=== PATIENT | female | born 1960 | race Caucasian/White ===

== ENCOUNTER 2020-01-18 13:29 | Inpatient (IN) | payer MEDICAID ==
[~2020-01-18] VITALS: Ht 160 cm; Wt 79.8 kg
[2020-01-18] MEDS ORDERED: LORAZEPAM 2MG/ML CPJ ONE (13:47)
[2020-01-18] MEDS ORDERED: SODIUM CHLORIDE 0.9% 1,000 ML IV ONE (14:01)
[2020-01-18 14:14] LABS: BASOPHILS % 0.6 % (0.0-2.0); EOSINOPHILS % 5.7 % (0.0-5.0); HEMATOCRIT. 41.4 % (36.0-48.0); HEMOGLOBIN. 13.8 g/dL (12.0-16.0); LYMPHOCYTES % 46.6 % (20.0-50.0); MEAN CORPUSCULAR HEMOGLOBIN 33.1 pg (28.0-32.0); MEAN PLATELET VOLUME 8.2 fl (7.4-10.4); MONOCYTES % 6.7 % (2.0-8.0); NEUTROPHILS % 40.4 % (40.0-76.0); PLATELET 369 x1000/uL (130-400); RED BLOOD CELL COUNT 4.18 mill/uL (4.2-5.4); RED CELL DISTRIBUTION WIDTH 14.2 % (11.6-14.6)
[2020-01-18] MEDS ORDERED: LEVETIRACETAM 500MG PREMIX 100 ML IV ONE (14:15)
[2020-01-18 14:22] LABS: CHLORIDE 106 mEq/L (98-107); CLARITY URINE CLEAR (CLEAR); COLOR URINE YELLOW (YELLOW); KETONES URINE NEGATIVE (NEGATIVE); LEUKOCYTE ESTERASE URINE 1+ (NEGATIVE); NITRITE URINE NEGATIVE (NEGATIVE); OCCULT BLOOD URINE 1+ (NEGATIVE); PH URINE 5.5 (4.5-8.0); PROTEIN URINE 1+ (NEGATIVE); SPECIFIC GRAVITY URINE 1.023 (1.005-1.030)
[2020-01-18 14:23] LABS: INR 0.9; PARTIAL THROMBOPLASTIN TIME 24.4 sec (23.4-31.0); PROTHROMBIN TIME 10.3 sec (9.6-11.0)
[2020-01-18 14:26] LABS: ETHANOL BLOOD < 10 mg/dL
[2020-01-18] MEDS ORDERED: LORAZEPAM 2MG/ML CPJ IV ONE (14:30)
[2020-01-18 14:41] LABS: CARBAMAZEPINE < 0.5 ug/mL (4-12); PHENOBARBITAL < 2.1 ug/mL (15.0-40.0); VALPROIC ACID < 3.0 ug/mL (50-100)
[2020-01-18 14:43] LABS: *AMPHETAMINES SCREEN URINE PRESUMTIVE POSITIVE (NEGATIVE); *BARBITURATES SCREEN URINE NEGATIVE (NEGATIVE); *BENZODIAZEPINES SCREEN URINE NEGATIVE (NEGATIVE); *COCAINE SCREEN URINE NEGATIVE (NEGATIVE)
[2020-01-18 14:44] LABS: CANNABINOID URINE SCREEN NEGATIVE (NEGATIVE); METHADONE URINE SCREEN NEGATIVE (NEGATIVE); OPIATES URINE SCREEN NEGATIVE (NEGATIVE); PHENCYCLIDINE URINE SCREEN NEGATIVE (NEGATIVE)
[2020-01-18] MEDS ORDERED: CEFTRIAXONE 1 G PREMIX 50 ML IV ONE (17:00)
[2020-01-18 18:09] VITALS: BP 134/78
[2020-01-18] MEDS ORDERED: SODIUM CHLORIDE 0.9% 1,000 ML IV SCH (19:28)
[2020-01-18] MEDS ORDERED: ACETAMINOPHEN 650MG/20.3ML UDC GT PRN ×2 (19:30)
[2020-01-18] MEDS ORDERED: MAGNESIUM/ALUMINUM HYDROXIDE/SIMETHICONE 30ML UDC PO PRN (19:30)
[2020-01-18] MEDS ORDERED: ACETAMINOPHEN 650MG SUPP PR PRN (19:30)
[2020-01-18] MEDS ORDERED: CLONIDINE 0.1MG TABLET PO PRN (19:30)
[2020-01-18] MEDS ORDERED: LORAZEPAM 2MG/ML CPJ IV PRN (19:30)
[2020-01-18] MEDS ORDERED: ACETAMINOPHEN 325MG TABLET PO PRN (19:30)
[2020-01-18] MEDS ORDERED: NA PHOS,M-B/NA PHOS,DI-BA ENEMA 118ML PR PRN (19:30)
[2020-01-18] MEDS ORDERED: DIPHENHYDRAMINE 50MG/ML VIAL IV PRN (19:30)
[2020-01-18 20:00] VITALS: BP 125/68
[2020-01-18] MEDS: AMLODIPINE 10MG TABLET PO SCH (21:21)
[2020-01-18] MEDS: LEVETIRACETAM 500MG TABLET PO SCH (21:21)
[2020-01-18] MEDS: ACETAMINOPHEN 325MG TABLET PO PRN (21:22)
[2020-01-19] VITALS: BP 100/50
[2020-01-19 07:34] LABS: BASOPHILS % 0.5 % (0.0-2.0); EOSINOPHILS % 4.7 % (0.0-5.0); HEMATOCRIT. 37.1 % (36.0-48.0); HEMOGLOBIN. 12.6 g/dL (12.0-16.0); MEAN CORPUSCULAR VOLUME 96.7 fL (81.0-99.0); MEAN PLATELET VOLUME 8.3 fl (7.4-10.4); MONOCYTES % 5.9 % (2.0-8.0); NEUTROPHILS % 58.9 % (40.0-76.0); PLATELET 312 x1000/uL (130-400); RED BLOOD CELL COUNT 3.83 mill/uL (4.2-5.4); RED CELL DISTRIBUTION WIDTH 14.3 % (11.6-14.6)
[2020-01-19 07:40] LABS: CHLORIDE 111 mEq/L (98-107)
[2020-01-19 07:52] LABS: LDL CHOLESTEROL 157 mg/dL (5-100)
[2020-01-19 07:54] LABS: HDL CHOLESTEROL 46 mg/dL (40-59)
[2020-01-19 08:00] VITALS: BP 101/51
[2020-01-19] MEDS: ACETAMINOPHEN 325MG TABLET PO PRN (08:15)
[2020-01-19] MEDS: LEVETIRACETAM 500MG TABLET PO SCH (08:15)
[2020-01-19] MEDS: AMLODIPINE 10MG TABLET PO SCH (08:17)
[2020-01-19] MEDS ORDERED: KEPP500 MT (11:04)
[2020-01-19 12:00] VITALS: BP 103/66
[2020-01-19 12:58] VITALS: BP 103/66
== END 2020-01-19 14:40 | disposition home or self-care (01) | DRG 53 ==
LOC: ER 13:47 → MICUSO 17:31 → 6WST 18:01
PROVIDERS: ADMIT Family Medicine; ATTEND Family Medicine
DX: G40.89 Other seizures (principal); E78.00 Pure hypercholesterolemia, unspecified; E78.5 Hyperlipidemia, unspecified; F17.200 Nicotine dependence, unspecified, uncomplicated; F19.90 Other psychoactive substance use, unspecified, uncomplicated; I10 Essential (primary) hypertension; Z79.899 Other long term (current) drug therapy; N39.0 Urinary tract infection, site not specified
CPT/HCPCS: 36415; 71045; 80053; 80061; 80156; 80165; 80184; 80185; 80305; 80320; 81003; 83036; 83880; 84484; 85025; 93005; 99285; J0696; J1953; J2060; J7030; G0480

== ENCOUNTER 2021-05-10 11:04 | Inpatient (IN) | payer MEDICAID, OTHER ==
[~2021-05-10] VITALS: Ht 160 cm; Wt 76.7 kg
[~2021-05-10 11:04] MED LIST: KEPP500 MT
[2021-05-10] MEDS ORDERED: LEVETIRACETAM 1000MG PREMIX 100 ML IV ONE (11:15)
[2021-05-10 11:45] LABS: BASOPHILS % 0.8 % (0.0-2.0); EOSINOPHILS % 4.7 % (0.0-5.0); HEMATOCRIT. 36.5 % (36.0-48.0); HEMOGLOBIN. 12.7 g/dL (12.0-16.0); LYMPHOCYTES % 20.7 % (20.0-50.0); MEAN CORPUSCULAR HEMOGLOBIN 31.3 pg (28.0-32.0); MEAN CORPUSCULAR VOLUME 89.7 fL (81.0-99.0); MEAN PLATELET VOLUME 7.8 fl (7.4-10.4); MONOCYTES % 4.1 % (2.0-8.0); NEUTROPHILS % 69.7 % (40.0-76.0); PLATELET 351 x1000/uL (130-400); RED BLOOD CELL COUNT 4.07 mill/uL (4.2-5.4); RED CELL DISTRIBUTION WIDTH 14.3 % (11.6-14.6)
[2021-05-10 11:46] LABS: CHLORIDE 107 mEq/L (98-107)
[2021-05-10 11:50] LABS: ETHANOL BLOOD < 10 mg/dL
[2021-05-10 12:44] LABS: CLARITY URINE CLEAR (CLEAR); COLOR URINE YELLOW (YELLOW); KETONES URINE NEGATIVE (NEGATIVE); LEUKOCYTE ESTERASE URINE NEGATIVE (NEGATIVE); NITRITE URINE NEGATIVE (NEGATIVE); OCCULT BLOOD URINE NEGATIVE (NEGATIVE); PH URINE 5.5 (4.5-8.0); PROTEIN URINE NEGATIVE (NEGATIVE); SPECIFIC GRAVITY URINE 1.022 (1.005-1.030)
[2021-05-10 13:23] LABS: *BARBITURATES SCREEN URINE NEGATIVE (NEGATIVE); *COCAINE SCREEN URINE NEGATIVE (NEGATIVE); METHADONE URINE SCREEN NEGATIVE (NEGATIVE); OPIATES URINE SCREEN NEGATIVE (NEGATIVE); PHENCYCLIDINE URINE SCREEN NEGATIVE (NEGATIVE)
[2021-05-10 13:24] LABS: *AMPHETAMINES SCREEN URINE NEGATIVE (NEGATIVE); *BENZODIAZEPINES SCREEN URINE PRESUMTIVE POSITIVE (NEGATIVE); CANNABINOID URINE SCREEN NEGATIVE (NEGATIVE)
[2021-05-10] MEDS ORDERED: ACETAMINOPHEN 325MG TABLET PO PRN (13:45)
[2021-05-10] MEDS ORDERED: LORAZEPAM 2MG/ML CPJ IV PRN (13:45)
[2021-05-10] MEDS ORDERED: MAGNESIUM/ALUMINUM HYDROXIDE/SIMETHICONE 30ML UDC PO PRN (13:45)
[2021-05-10] MEDS ORDERED: HYDROCODONE/ACETAMINOPHEN 5/325MG TABLET PO PRN (13:45)
[2021-05-10] MEDS ORDERED: CLONIDINE 0.1MG TABLET PO PRN (13:45)
[2021-05-10] MEDS ORDERED: ONDANSETRON HCL 4MG/2ML INJ IV PRN (13:45)
[2021-05-10] MEDS ORDERED: ENOXAPARIN 40MG/0.4ML SYR SUBCUT SCH (15:00)
[2021-05-10] MEDS: SODIUM CHLORIDE 0.45% 1,000 ML IV SCH (15:59)
[2021-05-11 05:12] LABS: BASOPHILS % 0.8 % (0.0-2.0); EOSINOPHILS % 5.4 % (0.0-5.0); HEMATOCRIT. 36.6 % (36.0-48.0); HEMOGLOBIN. 12.3 g/dL (12.0-16.0); LYMPHOCYTES % 26.5 % (20.0-50.0); MEAN CORPUSCULAR HEMOGLOBIN 30.7 pg (28.0-32.0); MEAN CORPUSCULAR VOLUME 90.9 fL (81.0-99.0); MEAN PLATELET VOLUME 8.1 fl (7.4-10.4); MONOCYTES % 7.4 % (2.0-8.0); NEUTROPHILS % 59.9 % (40.0-76.0); PLATELET 358 x1000/uL (130-400); RED BLOOD CELL COUNT 4.03 mill/uL (4.2-5.4)
[2021-05-11 05:20] LABS: CHLORIDE 107 mEq/L (98-107)
[2021-05-11] MEDS: SODIUM CHLORIDE 0.45% 1,000 ML IV SCH (06:49)
[2021-05-11 08:05] VITALS: BP 95/42
[2021-05-11] MEDS ORDERED: SERTRALINE HCL 25MG TABLET PO SCH (09:15)
[2021-05-11 10:56] VITALS: BP 95/42
[2021-05-11] MEDS ORDERED: LEVETIRACETAM 500MG TABLET PO SCH (21:00)
[2021-05-11] MEDS ORDERED: ATORVASTATIN CALCIUM 20MG TABLET PO SCH (21:00)
[2021-05-11] MEDS ORDERED: LEVETIRACETAM 500MG/5ML CUP PO SCH (21:00)
== END 2021-05-11 12:40 | disposition home or self-care (01) | DRG 53 ==
LOC: ER 11:26 → MICUSO 13:23 → 8WST 05-11 07:35
PROVIDERS: ADMIT Hospitalist; ATTEND Hospitalist
DX: G40.909 Epilepsy, unspecified, not intractable, without status epilepticus (principal); E78.5 Hyperlipidemia, unspecified; I10 Essential (primary) hypertension; M19.90 Unspecified osteoarthritis, unspecified site; F19.10 Other psychoactive substance abuse, uncomplicated; F32.9 Major depressive disorder, single episode, unspecified; Z79.899 Other long term (current) drug therapy
CPT/HCPCS: 36415; 71045; 80053; 80305; 80320; 81003; 85025; 93005; 93970; 99285; J1650; J1953; G0480

== ENCOUNTER 2021-06-16 14:18 | Emergency (ER) | payer MEDICAID, OTHER ==
[~2021-06-16] VITALS: Ht 167.6 cm; Wt 68.0 kg
[2021-06-16] MEDS ORDERED: LEVETIRACETAM 1000MG PREMIX 100 ML IV ONE (15:00)
[2021-06-16 15:21] LABS: EOSINOPHILS % 3.7 % (0.0-5.0); HEMOGLOBIN. 12.3 g/dL (12.0-16.0); LYMPHOCYTES % 17.3 % (20.0-50.0); MEAN CORPUSCULAR VOLUME 92.6 fL (81.0-99.0); MONOCYTES % 2.7 % (2.0-8.0); NEUTROPHILS % 75.3 % (40.0-76.0); PLATELET 415 x1000/uL (130-400); RED CELL DISTRIBUTION WIDTH 14.1 % (11.6-14.6)
[2021-06-16 15:25] LABS: CHLORIDE 106 mEq/L (98-107)
[2021-06-16 15:30] LABS: ETHANOL BLOOD < 10 mg/dL
[2021-06-16] MEDS ORDERED: LORAZEPAM 2MG/ML CPJ IV ONE (17:45)
[2021-06-16] MEDS ORDERED: KEPP500 MT (17:52)
[2021-06-16 22:39] LABS: CLARITY URINE CLEAR (CLEAR); COLOR URINE YELLOW (YELLOW); KETONES URINE NEGATIVE (NEGATIVE); LEUKOCYTE ESTERASE URINE NEGATIVE (NEGATIVE); NITRITE URINE NEGATIVE (NEGATIVE); OCCULT BLOOD URINE 1+ (NEGATIVE); PROTEIN URINE TRACE (NEGATIVE); SPECIFIC GRAVITY URINE 1.018 (1.005-1.030); UROBILINOGEN URINE 0.2 E.U./dL (0.2-1.0)
[2021-06-16 22:48] LABS: *AMPHETAMINES SCREEN URINE PRESUMTIVE POSITIVE (NEGATIVE); *BARBITURATES SCREEN URINE NEGATIVE (NEGATIVE); *BENZODIAZEPINES SCREEN URINE PRESUMTIVE POSITIVE (NEGATIVE); *COCAINE SCREEN URINE NEGATIVE (NEGATIVE); METHADONE URINE SCREEN NEGATIVE (NEGATIVE)
[2021-06-16 22:49] LABS: CANNABINOID URINE SCREEN NEGATIVE (NEGATIVE); OPIATES URINE SCREEN NEGATIVE (NEGATIVE); PHENCYCLIDINE URINE SCREEN NEGATIVE (NEGATIVE)
[2021-06-16 23:40] VITALS: BP 138/78
== END 2021-06-16 23:40 | disposition home or self-care (01) ==
LOC: ER 14:18
DX: G40.909 Epilepsy, unspecified, not intractable, without status epilepticus (principal); I10 Essential (primary) hypertension; Z86.73 Personal history of transient ischemic attack (TIA), and cerebral infarction without residual deficits
CPT/HCPCS: 36415; 70450; 80053; 80305; 80320; 81003; 85025; 93005; 96365; 96366; 96375; 99285; J1953; J2060; G0480

== ENCOUNTER 2022-04-02 20:17 | Inpatient (IN) | payer MEDICAID, OTHER ==
[~2022-04-02] VITALS: Ht 165.1 cm; Wt 83.3 kg
[2022-04-02] MEDS ORDERED: MIDAZOLAM HCL 2 MG/2 ML VIAL IM ONE (21:30)
[2022-04-02] MEDS ORDERED: SODIUM CHLORIDE 0.9% 1,000 ML IV ONE (21:30)
[2022-04-02] MEDS ORDERED: MIDAZOLAM HCL 2 MG/2 ML VIAL IV ONE ×2 (21:30→22:00)
[2022-04-02] MEDS ORDERED: LEVETIRACETAM 500MG PREMIX 100 ML IV ONE (21:30)
[2022-04-02] MEDS ORDERED: SODIUM CHLORIDE 0.9% 1000ML BAG (SEPSIS BOLUS) IV ONE (22:00)
[2022-04-02] MEDS ORDERED: AZITHROMYCIN 500MG/250ML 250 ML IV ONE (22:00)
[2022-04-02] MEDS ORDERED: CEFTRIAXONE 1 G PREMIX 50 ML IV ONE (22:00)
[2022-04-02 22:14] LABS: BASOPHILS % 0.9 % (0.0-2.0); EOSINOPHILS % 4.3 % (0.0-5.0); HEMATOCRIT. 37.1 % (36.0-48.0); HEMOGLOBIN. 12.3 g/dL (12.0-16.0); LYMPHOCYTES % 34.2 % (20.0-50.0); MEAN CORPUSCULAR HEMOGLOBIN 30.7 pg (28.0-32.0); MEAN CORPUSCULAR VOLUME 92.6 fL (81.0-99.0); MEAN PLATELET VOLUME 8.4 fl (7.4-10.4); MONOCYTES % 4.3 % (2.0-8.0); NEUTROPHILS % 56.3 % (40.0-76.0); PLATELET 360 x1000/uL (130-400)
[2022-04-02 22:22] LABS: CHLORIDE 106 mEq/L (98-107)
[2022-04-02 22:33] LABS: ETHANOL BLOOD < 10 mg/dL; VALPROIC ACID <3.0 ug/mL ug/mL (50-100)
[2022-04-02 22:43] LABS: CARBAMAZEPINE < 0.5 ug/mL (4-12); PHENOBARBITAL < 2.1 ug/mL (15.0-40.0)
[2022-04-02] MEDS ORDERED: LACTULOSE 20G/30ML UDC PO ONE (23:00)
[2022-04-02 23:26] LABS: BG BASE EXCESS -3.9 mmol/L (-2.0-2.0); BG CARBOXYHEMOGLOBIN 0.5 % (0.5-1.5); BG DEOXYHEMOGLOBIN 2.3 % (0.0-5.0); BG FRACTION INSPIRED OXYGEN 100; BG METHEMOGLOBIN 0.2 % (0.0-1.5); BG OXYGEN SATURATION 97.7 % (92.0-98.5); BG PCO2 64.3 mmHg (35.0-45.0); BG PH 7.208 (7.350-7.450); BG PO2 122.6 mmHg (75.0-100.0); BG SAMPLE SITE RIGHT RADIAL; BG TOTAL HEMOGLOBIN 12.6 g/dL (12.0-18.0); BG VENT MODE MASK - NRB
[2022-04-02] MEDS ORDERED: PROPOFOL 10MG/ML 100ML 100 ML IV STA (23:38)
[2022-04-03] VITALS (49 sets, daily range): BP systolic 112–154; BP diastolic 69–124
[2022-04-03 00:14] LABS: CLARITY URINE CLEAR (CLEAR); COLOR URINE YELLOW (YELLOW); KETONES URINE NEGATIVE (NEGATIVE); LEUKOCYTE ESTERASE URINE NEGATIVE (NEGATIVE); NITRITE URINE NEGATIVE (NEGATIVE); OCCULT BLOOD URINE 1+ (NEGATIVE); PROTEIN URINE NEGATIVE (NEGATIVE); SPECIFIC GRAVITY URINE 1.014 (1.005-1.030); UROBILINOGEN URINE 0.2 E.U./dL (0.2-1.0)
[2022-04-03 00:31] LABS: *AMPHETAMINES SCREEN URINE NEGATIVE (NEGATIVE); *BARBITURATES SCREEN URINE NEGATIVE (NEGATIVE); *BENZODIAZEPINES SCREEN URINE PRESUMTIVE POSITIVE (NEGATIVE); *COCAINE SCREEN URINE NEGATIVE (NEGATIVE); CANNABINOID URINE SCREEN NEGATIVE (NEGATIVE); METHADONE URINE SCREEN NEGATIVE (NEGATIVE); OPIATES URINE SCREEN NEGATIVE (NEGATIVE); PHENCYCLIDINE URINE SCREEN NEGATIVE (NEGATIVE)
[2022-04-03] MEDS ORDERED: PROPOFOL 10MG/ML 100ML 100 ML IV STA (00:35)
[2022-04-03] MEDS ORDERED: MIDAZOLAM HCL 2 MG/2 ML VIAL IV ONE (00:45)
[2022-04-03] MEDS ORDERED: MIDAZOLAM 100MG/100ML PMX 100 ML IV NR (00:45)
[2022-04-03] MEDS ORDERED: MIDAZOLAM HCL 100 MG in DEXT 5% WATER 80 ML IV ONE (00:45)
[2022-04-03 01:06] LABS: BG CARBOXYHEMOGLOBIN 0.3 % (0.5-1.5); BG FRACTION INSPIRED OXYGEN 100; BG METHEMOGLOBIN 0.4 % (0.0-1.5); BG OXYHEMOGLOBIN 98.3 % (94.0-97.0); BG PCO2 46.4 mmHg (35.0-45.0); BG PH 7.349 (7.350-7.450); BG PO2 222.1 mmHg (75.0-100.0); BG SAMPLE SITE RIGHT BRACHIAL; BG TOTAL HEMOGLOBIN 13.1 g/dL (12.0-18.0); BG VENT MODE VENT - AC
[2022-04-03] MEDS ORDERED: PROPOFOL 10MG/ML 100ML 100 ML IV NR (03:30)
[2022-04-03] MEDS: PROPOFOL 10MG/ML 100ML 100 ML IV PRN ×4 (08:35→21:01)
[2022-04-03 09:25] LABS: BASOPHILS % 0.2 % (0.0-2.0); EOSINOPHILS % 1.1 % (0.0-5.0); HEMATOCRIT. 34.6 % (36.0-48.0); HEMOGLOBIN. 11.6 g/dL (12.0-16.0); LYMPHOCYTES % 15.2 % (20.0-50.0); MEAN CORPUSCULAR HEMOGLOBIN 30.4 pg (28.0-32.0); MEAN PLATELET VOLUME 7.7 fl (7.4-10.4); MONOCYTES % 5.8 % (2.0-8.0); NEUTROPHILS % 77.7 % (40.0-76.0); PLATELET 320 x1000/uL (130-400); RED CELL DISTRIBUTION WIDTH 14.6 % (11.6-14.6)
[2022-04-03 09:31] LABS: CHLORIDE 107 mEq/L (98-107)
[2022-04-03] MEDS: LEVETIRACETAM 500MG PREMIX 100 ML IV SCH ×2 (11:15→20:07)
[2022-04-03] MEDS ORDERED: CEFTRIAXONE 1 G PREMIX 50 ML IV SCH (11:45)
[2022-04-03] MEDS ORDERED: POTASSIUM CHLORIDE INJ 40 MEQ in DEXT 5% WATER 250 ML IV ONE (11:45)
[2022-04-03 12:17] LABS: BG BASE EXCESS 2.9 mmol/L (-2.0-2.0); BG CARBOXYHEMOGLOBIN 0.3 % (0.5-1.5); BG DEOXYHEMOGLOBIN 2.5 % (0.0-5.0); BG FRACTION INSPIRED OXYGEN 40; BG HCO3 ACT 26.7 mmol/L (22.0-26.0); BG OXYGEN SATURATION 97.5 % (92.0-98.5); BG OXYHEMOGLOBIN 97.2 % (94.0-97.0); BG PH 7.464 (7.350-7.450); BG PO2 99.2 mmHg (75.0-100.0); BG TOTAL HEMOGLOBIN 12.5 g/dL (12.0-18.0); BG VENT MODE VENT - AC
[2022-04-03] MEDS: PANTOPRAZOLE SODIUM 40 MG/VIAL IV SCH (12:31)
[2022-04-03] MEDS: ENOXAPARIN 40MG/0.4ML SYR SUBCUT SCH (12:32)
[2022-04-03] MEDS: KCL 20MEQ/100ML X 2 FOR TOTAL KCL 40MEQ/200ML IV SCH ×2 (12:32→15:36)
[2022-04-03] MEDS ORDERED: OMEP20TA15 MT (12:48)
[2022-04-03] MEDS ORDERED: ATOR20TA PO (12:48)
[2022-04-03] MEDS ORDERED: SERT100T PO (12:48)
[2022-04-03] MEDS ORDERED: ASPI-1497 MT (12:48)
[2022-04-03] MEDS ORDERED: GABA-290 PO (12:48)
[2022-04-03] MEDS: ALBUTEROL (0.083%) 2.5MG/3ML NEB HHN SCH (20:19)
[2022-04-03] MEDS: AZITHROMYCIN 500 MG in DEXT 5% WATER 250 ML IV SCH (21:00)
[2022-04-03] MEDS: MIDAZOLAM HCL 100 MG in SODIUM CHLORIDE 0.9% 80 ML IV PRN (21:00)
[2022-04-03] MEDS: CEFTRIAXONE 1,000 MG in DEXTROSE 5% WATER 50 ML IV SCH (21:00)
[2022-04-04] VITALS (48 sets, daily range): BP systolic 98–156; BP diastolic 57–95
[2022-04-04] MEDS: PROPOFOL 10MG/ML 100ML 100 ML IV PRN ×6 (00:55→21:38)
[2022-04-04] MEDS: ALBUTEROL (0.083%) 2.5MG/3ML NEB HHN SCH ×4 (02:25→20:20)
[2022-04-04 05:59] LABS: BASOPHILS % 0.4 % (0.0-2.0); EOSINOPHILS % 2.7 % (0.0-5.0); HEMATOCRIT. 37.5 % (36.0-48.0); HEMOGLOBIN. 12.6 g/dL (12.0-16.0); LYMPHOCYTES % 21.7 % (20.0-50.0); MEAN CORPUSCULAR HEMOGLOBIN 30.8 pg (28.0-32.0); MEAN CORPUSCULAR VOLUME 91.7 fL (81.0-99.0); MEAN PLATELET VOLUME 7.8 fl (7.4-10.4); MONOCYTES % 6.6 % (2.0-8.0); NEUTROPHILS % 68.6 % (40.0-76.0); PLATELET 326 x1000/uL (130-400); RED BLOOD CELL COUNT 4.09 mill/uL (4.2-5.4); RED CELL DISTRIBUTION WIDTH 14.7 % (11.6-14.6)
[2022-04-04 06:10] LABS: CHLORIDE 106 mEq/L (98-107)
[2022-04-04 08:37] LABS: BG BASE EXCESS 3.2 mmol/L (-2.0-2.0); BG CARBOXYHEMOGLOBIN 0.3 % (0.5-1.5); BG DEOXYHEMOGLOBIN 2.5 % (0.0-5.0); BG FRACTION INSPIRED OXYGEN 40; BG HCO3 ACT 26.9 mmol/L (22.0-26.0); BG METHEMOGLOBIN 0.2 % (0.0-1.5); BG OXYGEN SATURATION 97.5 % (92.0-98.5); BG PH 7.468 (7.350-7.450); BG PO2 96.5 mmHg (75.0-100.0); BG SAMPLE SITE RIGHT RADIAL; BG TOTAL HEMOGLOBIN 12.7 g/dL (12.0-18.0); BG VENT MODE VENT - AC
[2022-04-04] MEDS: LEVETIRACETAM 500MG PREMIX 100 ML IV SCH ×2 (08:51→21:14)
[2022-04-04] MEDS: PANTOPRAZOLE SODIUM 40 MG/VIAL IV SCH (08:51)
[2022-04-04] MEDS: ENOXAPARIN 40MG/0.4ML SYR SUBCUT SCH (08:51)
[2022-04-04] MEDS ORDERED: MIDAZOLAM 100MG/100ML PREMIX IV PRN (09:00)
[2022-04-04] MEDS ORDERED: POTASSIUM CHLORIDE INJ 40 MEQ in DEXT 5% WATER 250 ML IV ONE (09:15)
[2022-04-04] MEDS: KCL 20MEQ/100ML X 2 FOR TOTAL KCL 40MEQ/200ML IV SCH ×2 (10:07→11:59)
[2022-04-04] MEDS: MIDAZOLAM HCL 100 MG in SODIUM CHLORIDE 0.9% 80 ML IV PRN (10:46)
[2022-04-04] MEDS ORDERED: IPRATROPIUM/ALBUTEROL 0.5-3(2.5)MG/3ML NEB HHN PRN (14:30)
[2022-04-04] MEDS: FENTANYL 2500MCG/250ML PMX 250 ML IV PRN (15:42)
[2022-04-04] MEDS: QUETIAPINE FUMARATE 50MG TABLET PO SCH (21:00)
[2022-04-04] MEDS: CEFTRIAXONE 1,000 MG in DEXTROSE 5% WATER 50 ML IV SCH (21:23)
[2022-04-04] MEDS: AZITHROMYCIN 500 MG in DEXT 5% WATER 250 ML IV SCH (21:24)
[2022-04-05] VITALS (41 sets, daily range): BP systolic 89–138; BP diastolic 52–79
[2022-04-05] MEDS: ALBUTEROL (0.083%) 2.5MG/3ML NEB HHN SCH ×4 (01:48→20:47)
[2022-04-05] MEDS: PROPOFOL 10MG/ML 100ML 100 ML IV PRN ×5 (02:30→17:19)
[2022-04-05 06:01] LABS: BASOPHILS % 0.5 % (0.0-2.0); EOSINOPHILS % 4.7 % (0.0-5.0); HEMATOCRIT. 37.5 % (36.0-48.0); HEMOGLOBIN. 12.5 g/dL (12.0-16.0); LYMPHOCYTES % 15.5 % (20.0-50.0); MEAN CORPUSCULAR HEMOGLOBIN 30.8 pg (28.0-32.0); MEAN CORPUSCULAR VOLUME 92.4 fL (81.0-99.0); MEAN PLATELET VOLUME 8.3 fl (7.4-10.4); MONOCYTES % 6.9 % (2.0-8.0); NEUTROPHILS % 72.4 % (40.0-76.0); PLATELET 295 x1000/uL (130-400); RED BLOOD CELL COUNT 4.06 mill/uL (4.2-5.4)
[2022-04-05 06:45] LABS: CHLORIDE 105 mEq/L (98-107)
[2022-04-05] MEDS: PANTOPRAZOLE SODIUM 40 MG/VIAL IV SCH (08:09)
[2022-04-05] MEDS: QUETIAPINE FUMARATE 50MG TABLET PO SCH ×2 (08:10→21:27)
[2022-04-05] MEDS: ENOXAPARIN 40MG/0.4ML SYR SUBCUT SCH (08:10)
[2022-04-05 08:30] LABS: BG BASE EXCESS -1.1 mmol/L (-2.0-2.0); BG CARBOXYHEMOGLOBIN 0.3 % (0.5-1.5); BG DEOXYHEMOGLOBIN 4.1 % (0.0-5.0); BG FRACTION INSPIRED OXYGEN 40; BG HCO3 ACT 22.2 mmol/L (22.0-26.0); BG METHEMOGLOBIN 0.3 % (0.0-1.5); BG OXYGEN SATURATION 95.9 % (92.0-98.5); BG OXYHEMOGLOBIN 95.3 % (94.0-97.0); BG PCO2 32.7 mmHg (35.0-45.0); BG PO2 80.3 mmHg (75.0-100.0); BG SAMPLE SITE RIGHT RADIAL; BG TOTAL HEMOGLOBIN 11.9 g/dL (12.0-18.0); BG VENT MODE VENT - AC
[2022-04-05] MEDS: LEVETIRACETAM 500MG PREMIX 100 ML IV SCH (09:38)
[2022-04-05] MEDS: CEFTRIAXONE 1,000 MG in DEXTROSE 5% WATER 50 ML IV SCH (21:19)
[2022-04-05] MEDS: LEVETIRACETAM 1000MG PREMIX 100 ML IV SCH (21:21)
[2022-04-05] MEDS: AZITHROMYCIN 500 MG in DEXT 5% WATER 250 ML IV SCH (21:25)
[2022-04-06] VITALS (69 sets, daily range): BP systolic 80–142; BP diastolic 46–105
[2022-04-06] MEDS: PROPOFOL 10MG/ML 100ML 100 ML IV PRN ×4 (00:12→11:13)
[2022-04-06] MEDS: FENTANYL 2500MCG/250ML PMX 250 ML IV PRN (01:26)
[2022-04-06] MEDS: ALBUTEROL (0.083%) 2.5MG/3ML NEB HHN SCH ×4 (01:49→20:17)
[2022-04-06] MEDS: MIDAZOLAM HCL 100 MG in SODIUM CHLORIDE 0.9% 80 ML IV PRN ×2 (05:37→18:08)
[2022-04-06 05:40] LABS: BASOPHILS % 0.6 % (0.0-2.0); EOSINOPHILS % 6.9 % (0.0-5.0); HEMATOCRIT. 34.5 % (36.0-48.0); HEMOGLOBIN. 11.6 g/dL (12.0-16.0); LYMPHOCYTES % 17.7 % (20.0-50.0); MEAN CORPUSCULAR HEMOGLOBIN 31.2 pg (28.0-32.0); MEAN CORPUSCULAR VOLUME 92.6 fL (81.0-99.0); MEAN PLATELET VOLUME 7.9 fl (7.4-10.4); MONOCYTES % 9.1 % (2.0-8.0); NEUTROPHILS % 65.7 % (40.0-76.0); PLATELET 294 x1000/uL (130-400); RED BLOOD CELL COUNT 3.73 mill/uL (4.2-5.4); RED CELL DISTRIBUTION WIDTH 15.4 % (11.6-14.6)
[2022-04-06 06:02] LABS: CHLORIDE 108 mEq/L (98-107)
[2022-04-06] MEDS: ENOXAPARIN 40MG/0.4ML SYR SUBCUT SCH (08:19)
[2022-04-06] MEDS: QUETIAPINE FUMARATE 50MG TABLET PO SCH ×2 (08:19→20:50)
[2022-04-06] MEDS: THIAMINE HCL 100MG TABLET PO SCH (08:19)
[2022-04-06] MEDS: LEVETIRACETAM 1000MG PREMIX 100 ML IV SCH ×2 (08:22→20:50)
[2022-04-06] MEDS: PANTOPRAZOLE SODIUM 40 MG/VIAL IV SCH (08:22)
[2022-04-06 09:00] LABS: BG BASE EXCESS -0.5 mmol/L (-2.0-2.0); BG CARBOXYHEMOGLOBIN 0.1 % (0.5-1.5); BG DEOXYHEMOGLOBIN 5.6 % (0.0-5.0); BG FRACTION INSPIRED OXYGEN 40; BG HCO3 ACT 25.5 mmol/L (22.0-26.0); BG METHEMOGLOBIN 0.2 % (0.0-1.5); BG OXYGEN SATURATION 94.4 % (92.0-98.5); BG OXYHEMOGLOBIN 94.1 % (94.0-97.0); BG PCO2 47.1 mmHg (35.0-45.0); BG PH 7.351 (7.350-7.450); BG PO2 75.2 mmHg (75.0-100.0); BG SAMPLE SITE RIGHT RADIAL; BG TOTAL HEMOGLOBIN 13.7 g/dL (12.0-18.0); BG VENT MODE VENT - AC
[2022-04-06] MEDS ORDERED: NOREPINEPHRINE 8 MG in DEXT 5% WATER 242 ML IV PRN (10:45)
[2022-04-06] MEDS ORDERED: PROPOFOL 10MG/ML 100ML 100 ML IV PRN (13:45)
[2022-04-06] MEDS: METOCLOPRAMIDE HCL 10MG/2ML VIAL IV SCH (15:41)
[2022-04-06] MEDS: AZITHROMYCIN 500 MG in DEXT 5% WATER 250 ML IV SCH (21:50)
[2022-04-06] MEDS: CEFTRIAXONE 1,000 MG in DEXTROSE 5% WATER 50 ML IV SCH (21:53)
[2022-04-06] MEDS: PHENYTOIN SODIUM 100MG/2ML VIAL IV SCH (21:54)
[2022-04-07] VITALS (75 sets, daily range): BP systolic 88–176; BP diastolic 41–99
[2022-04-07] MEDS: METOCLOPRAMIDE HCL 10MG/2ML VIAL IV SCH ×3 (00:20→16:00)
[2022-04-07] MEDS: PHENYTOIN SODIUM 100MG/2ML VIAL IV SCH ×3 (06:00→21:37)
[2022-04-07] MEDS: ALBUTEROL (0.083%) 2.5MG/3ML NEB HHN SCH ×3 (06:00→19:41)
[2022-04-07] MEDS: QUETIAPINE FUMARATE 50MG TABLET PO SCH ×2 (09:00→21:37)
[2022-04-07] MEDS: PANTOPRAZOLE SODIUM 40 MG/VIAL IV SCH (09:00)
[2022-04-07] MEDS: LEVETIRACETAM 1000MG PREMIX 100 ML IV SCH ×2 (09:00→21:37)
[2022-04-07] MEDS: THIAMINE HCL 100MG TABLET PO SCH (09:00)
[2022-04-07 11:51] LABS: BG BASE EXCESS 0.9 mmol/L (-2.0-2.0); BG CARBOXYHEMOGLOBIN 0.3 % (0.5-1.5); BG DEOXYHEMOGLOBIN 5.5 % (0.0-5.0); BG FRACTION INSPIRED OXYGEN 40; BG HCO3 ACT 26.4 mmol/L (22.0-26.0); BG METHEMOGLOBIN 0.3 % (0.0-1.5); BG OXYGEN SATURATION 94.5 % (92.0-98.5); BG OXYHEMOGLOBIN 93.9 % (94.0-97.0); BG PCO2 45.8 mmHg (35.0-45.0); BG PH 7.378 (7.350-7.450); BG PO2 77.8 mmHg (75.0-100.0); BG SAMPLE SITE RIGHT RADIAL; BG TOTAL HEMOGLOBIN 11.5 g/dL (12.0-18.0); BG VENT MODE VENT - AC
[2022-04-07] MEDS: ENOXAPARIN 40MG/0.4ML SYR SUBCUT SCH (12:11)
[2022-04-07] MEDS: ASPIRIN 81MG TABLET PO SCH (12:44)
[2022-04-07] MEDS: MIDAZOLAM HCL 100 MG in SODIUM CHLORIDE 0.9% 80 ML IV PRN (16:35)
[2022-04-07] MEDS: ATORVASTATIN CALCIUM 10MG TABLET PO SCH (21:37)
[2022-04-07] MEDS: CEFTRIAXONE 1,000 MG in DEXTROSE 5% WATER 50 ML IV SCH (21:37)
[2022-04-08] VITALS (67 sets, daily range): BP systolic 95–178; BP diastolic 30–114
[2022-04-08] MEDS: METOCLOPRAMIDE HCL 10MG/2ML VIAL IV SCH ×2 (00:15→06:23)
[2022-04-08] MEDS: FENTANYL 2500MCG/250ML PMX 250 ML IV PRN (00:16)
[2022-04-08] MEDS: ALBUTEROL (0.083%) 2.5MG/3ML NEB HHN SCH ×4 (01:39→20:39)
[2022-04-08] MEDS: MIDAZOLAM HCL 100 MG in SODIUM CHLORIDE 0.9% 80 ML IV PRN (03:51)
[2022-04-08 05:51] LABS: CHLORIDE 104 mEq/L (98-107)
[2022-04-08 05:52] LABS: BASOPHILS % 0.3 % (0.0-2.0); EOSINOPHILS % 8.3 % (0.0-5.0); HEMATOCRIT. 30.6 % (36.0-48.0); HEMOGLOBIN. 10.1 g/dL (12.0-16.0); LYMPHOCYTES % 23.8 % (20.0-50.0); MEAN CORPUSCULAR HEMOGLOBIN 30.9 pg (28.0-32.0); MEAN CORPUSCULAR VOLUME 93.1 fL (81.0-99.0); MEAN PLATELET VOLUME 7.8 fl (7.4-10.4); MONOCYTES % 9.9 % (2.0-8.0); NEUTROPHILS % 57.7 % (40.0-76.0); PLATELET 278 x1000/uL (130-400); RED BLOOD CELL COUNT 3.28 mill/uL (4.2-5.4); RED CELL DISTRIBUTION WIDTH 14.9 % (11.6-14.6)
[2022-04-08] MEDS: PHENYTOIN SODIUM 100MG/2ML VIAL IV SCH (06:24)
[2022-04-08 08:28] LABS: BG BASE EXCESS 3.1 mmol/L (-2.0-2.0); BG CARBOXYHEMOGLOBIN 0.3 % (0.5-1.5); BG DEOXYHEMOGLOBIN 7.7 % (0.0-5.0); BG FRACTION INSPIRED OXYGEN 40; BG HCO3 ACT 28.3 mmol/L (22.0-26.0); BG METHEMOGLOBIN 0.3 % (0.0-1.5); BG OXYGEN SATURATION 92.3 % (92.0-98.5); BG OXYHEMOGLOBIN 91.7 % (94.0-97.0); BG PCO2 45.7 mmHg (35.0-45.0); BG PH 7.409 (7.350-7.450); BG PO2 63.6 mmHg (75.0-100.0); BG SAMPLE SITE LEFT RADIAL; BG TOTAL HEMOGLOBIN 11.2 g/dL (12.0-18.0); BG VENT MODE VENT - AC
[2022-04-08] MEDS: ENOXAPARIN 40MG/0.4ML SYR SUBCUT SCH (08:29)
[2022-04-08] MEDS: QUETIAPINE FUMARATE 50MG TABLET PO SCH (08:29)
[2022-04-08] MEDS: PANTOPRAZOLE SODIUM 40 MG/VIAL IV SCH (08:29)
[2022-04-08] MEDS: THIAMINE HCL 100MG TABLET PO SCH (08:29)
[2022-04-08] MEDS: LEVETIRACETAM 1000MG PREMIX 100 ML IV SCH (08:33)
[2022-04-08] MEDS: ASPIRIN 81MG TABLET PO SCH (08:34)
[2022-04-08] MEDS ORDERED: FUROSEMIDE 20MG/2ML VIAL IVP NR (11:45)
[2022-04-08] MEDS: PHENOL/SODIUM PHENOLATE 1.4% SRPAY 177ML MM PRN (14:10)
[2022-04-08] MEDS: MORPHINE SULFATE 2 MG/ML CPJ (NOT FOR IM USE) IV PRN (16:20)
[2022-04-08] MEDS: PHENYTOIN 100 MG/4 ML UDC NG SCH ×2 (16:21→20:34)
[2022-04-08] MEDS ORDERED: NALOXONE HCL 0.4MG/ML VIAL IV PRN (16:30)
[2022-04-08] MEDS: ONDANSETRON HCL 4MG/2ML INJ IV PRN (17:17)
[2022-04-08] MEDS: LEVETIRACETAM 500MG/5ML CUP NG SCH (20:34)
[2022-04-08] MEDS: ATORVASTATIN CALCIUM 10MG TABLET PO SCH (20:35)
[2022-04-08] MEDS: QUETIAPINE FUMARATE 25MG TABLET PO SCH (20:35)
[2022-04-09] VITALS (73 sets, daily range): BP systolic 86–193; BP diastolic 12–112
[2022-04-09] MEDS: MORPHINE SULFATE 2 MG/ML CPJ (NOT FOR IM USE) IV PRN (00:03)
[2022-04-09] MEDS: ONDANSETRON HCL 4MG/2ML INJ IV PRN (00:03)
[2022-04-09] MEDS: ALBUTEROL (0.083%) 2.5MG/3ML NEB HHN SCH ×4 (02:07→20:41)
[2022-04-09] MEDS: PHENYTOIN 100 MG/4 ML UDC NG SCH ×3 (06:11→21:38)
[2022-04-09] MEDS: LEVETIRACETAM 500MG/5ML CUP NG SCH ×2 (09:05→21:38)
[2022-04-09] MEDS: QUETIAPINE FUMARATE 25MG TABLET PO SCH ×2 (09:06→21:39)
[2022-04-09] MEDS: THIAMINE HCL 100MG TABLET PO SCH (09:06)
[2022-04-09] MEDS: PANTOPRAZOLE SODIUM 40 MG/VIAL IV SCH (09:06)
[2022-04-09] MEDS: ASPIRIN 81MG TABLET PO SCH (09:06)
[2022-04-09] MEDS: ENOXAPARIN 40MG/0.4ML SYR SUBCUT SCH (09:06)
[2022-04-09] MEDS ORDERED: ACETAMINOPHEN 325MG TABLET PO PRN (10:30)
[2022-04-09] MEDS: PHENOL/SODIUM PHENOLATE 1.4% SRPAY 177ML MM PRN (10:44)
[2022-04-09] MEDS: ATORVASTATIN CALCIUM 10MG TABLET PO SCH (21:38)
[2022-04-10] VITALS (50 sets, daily range): BP systolic 95–182; BP diastolic 27–155
[2022-04-10] MEDS: ALBUTEROL (0.083%) 2.5MG/3ML NEB HHN SCH ×4 (01:05→20:35)
[2022-04-10 05:51] LABS: BASOPHILS % 0.4 % (0.0-2.0); EOSINOPHILS % 8.1 % (0.0-5.0); HEMATOCRIT. 34.4 % (36.0-48.0); HEMOGLOBIN. 11.6 g/dL (12.0-16.0); LYMPHOCYTES % 18.2 % (20.0-50.0); MEAN CORPUSCULAR HEMOGLOBIN 30.9 pg (28.0-32.0); MEAN CORPUSCULAR VOLUME 91.6 fL (81.0-99.0); MEAN PLATELET VOLUME 7.6 fl (7.4-10.4); MONOCYTES % 9.2 % (2.0-8.0); NEUTROPHILS % 64.1 % (40.0-76.0); PLATELET 378 x1000/uL (130-400); RED BLOOD CELL COUNT 3.76 mill/uL (4.2-5.4); RED CELL DISTRIBUTION WIDTH 14.4 % (11.6-14.6)
[2022-04-10] MEDS: PHENYTOIN 100 MG/4 ML UDC NG SCH ×3 (05:55→21:25)
[2022-04-10 05:58] LABS: CHLORIDE 104 mEq/L (98-107)
[2022-04-10 08:11] LABS: BG BASE EXCESS 4.6 mmol/L (-2.0-2.0); BG CARBOXYHEMOGLOBIN 0.1 % (0.5-1.5); BG DEOXYHEMOGLOBIN 7.6 % (0.0-5.0); BG FRACTION INSPIRED OXYGEN 36; BG HCO3 ACT 28.5 mmol/L (22.0-26.0); BG METHEMOGLOBIN 0.2 % (0.0-1.5); BG OXYGEN SATURATION 92.4 % (92.0-98.5); BG OXYHEMOGLOBIN 92.1 % (94.0-97.0); BG PH 7.471 (7.350-7.450); BG PO2 61.9 mmHg (75.0-100.0); BG SAMPLE SITE RIGHT BRACHIAL; BG TOTAL HEMOGLOBIN 12.5 g/dL (12.0-18.0); BG VENT MODE NASAL CANNULA
[2022-04-10] MEDS: THIAMINE HCL 100MG TABLET PO SCH (09:06)
[2022-04-10] MEDS: AMLODIPINE 2.5MG TABLET PO SCH ×2 (09:06→21:09)
[2022-04-10] MEDS: ASPIRIN 81MG EC TABLET PO SCH (09:06)
[2022-04-10] MEDS: PANTOPRAZOLE SODIUM 40 MG/VIAL IV SCH (09:06)
[2022-04-10] MEDS: LEVETIRACETAM 500MG/5ML CUP NG SCH ×2 (09:06→21:08)
[2022-04-10] MEDS: ENOXAPARIN 40MG/0.4ML SYR SUBCUT SCH (09:07)
[2022-04-10] MEDS: QUETIAPINE FUMARATE 25MG TABLET PO SCH ×2 (09:07→21:09)
[2022-04-10] MEDS: PHENOL/SODIUM PHENOLATE 1.4% SRPAY 177ML MM PRN (10:11)
[2022-04-10] MEDS: ONDANSETRON HCL 4MG/2ML INJ IV PRN (13:19)
[2022-04-10] MEDS ORDERED: POTASSIUM CHLORIDE 20MEQ TABLET SR PO NR (16:00)
[2022-04-10] MEDS: ATORVASTATIN CALCIUM 10MG TABLET PO SCH (21:09)
[2022-04-11] VITALS: BP 114/72
[2022-04-11] MEDS: ALBUTEROL (0.083%) 2.5MG/3ML NEB HHN SCH ×2 (02:37→08:01)
[2022-04-11 04:00] VITALS: BP 120/76
[2022-04-11] MEDS: PHENYTOIN 100 MG/4 ML UDC NG SCH (05:50)
[2022-04-11 06:13] LABS: BASOPHILS % 0.6 % (0.0-2.0); EOSINOPHILS % 7.4 % (0.0-5.0); HEMATOCRIT. 32.8 % (36.0-48.0); HEMOGLOBIN. 11.2 g/dL (12.0-16.0); LYMPHOCYTES % 18.7 % (20.0-50.0); MEAN CORPUSCULAR HEMOGLOBIN 31.3 pg (28.0-32.0); MEAN CORPUSCULAR VOLUME 91.5 fL (81.0-99.0); NEUTROPHILS % 64.3 % (40.0-76.0); PLATELET 364 x1000/uL (130-400); RED BLOOD CELL COUNT 3.58 mill/uL (4.2-5.4); RED CELL DISTRIBUTION WIDTH 14.6 % (11.6-14.6)
[2022-04-11 06:18] LABS: CHLORIDE 107 mEq/L (98-107)
[2022-04-11 08:00] VITALS: BP 131/65
[2022-04-11] MEDS: PANTOPRAZOLE SODIUM 40 MG/VIAL IV SCH (09:00)
[2022-04-11] MEDS: THIAMINE HCL 100MG TABLET PO SCH (09:01)
[2022-04-11] MEDS: LEVETIRACETAM 500MG/5ML CUP NG SCH (09:01)
[2022-04-11] MEDS: ASPIRIN 81MG EC TABLET PO SCH (09:01)
[2022-04-11] MEDS: QUETIAPINE FUMARATE 25MG TABLET PO SCH (09:01)
[2022-04-11] MEDS: AMLODIPINE 2.5MG TABLET PO SCH (09:01)
[2022-04-11] MEDS: ENOXAPARIN 40MG/0.4ML SYR SUBCUT SCH (09:02)
[2022-04-11 11:10] VITALS: BP 131/65
== END 2022-04-11 14:21 | disposition home or self-care (01) | DRG 720 ==
LOC: ER 20:17 → EDBEDREQTM 04-03 00:05 → EDBEDREQDT 04-03 00:05 → EDBEDREQ 04-03 00:05 → EDBEDREQSVC 04-03 00:05 → ENRESERV 04-03 06:58 → CVICU 04-03 08:00 → 6WST 04-10 15:28
PROVIDERS: ADMIT Internal Medicine; ATTEND Internal Medicine
PROC: 5A1955Z Respiratory Ventilation, Greater than 96 Consecutive Hours (ICD-10-PCS; principal; 2022-04-03)
PROC: 0BH17EZ Insertion of Endotracheal Airway into Trachea, Via Natural or Artificial Opening (ICD-10-PCS; 2022-04-03)
PROC: 02H633Z Insertion of Infusion Device into Right Atrium, Percutaneous Approach (ICD-10-PCS; 2022-04-03)
PROC: B548ZZA Ultrasonography of Superior Vena Cava, Guidance (ICD-10-PCS; 2022-04-03)
PROC: 02HV33Z Insertion of Infusion Device into Superior Vena Cava, Percutaneous Approach (ICD-10-PCS; 2022-04-06)
PROC: B548ZZA Ultrasonography of Superior Vena Cava, Guidance (ICD-10-PCS; 2022-04-06)
PROC: 5A0935A Assistance with Respiratory Ventilation, Less than 24 Consecutive Hours, High Flow/Velocity Cannula (ICD-10-PCS; 2022-04-08)
DX: A41.9 Sepsis, unspecified organism (principal); J69.0 Pneumonitis due to inhalation of food and vomit; J96.01 Acute respiratory failure with hypoxia; J96.02 Acute respiratory failure with hypercapnia; G92.8 Other toxic encephalopathy; E87.2 Acidosis; Z20.822 Contact with and (suspected) exposure to COVID-19; G40.901 Epilepsy, unspecified, not intractable, with status epilepticus; E87.6 Hypokalemia; E83.51 Hypocalcemia; E78.5 Hyperlipidemia, unspecified; M19.90 Unspecified osteoarthritis, unspecified site; Z86.73 Personal history of transient ischemic attack (TIA), and cerebral infarction without residual deficits; Z91.14 Patient's other noncompliance with medication regimen; Z79.82 Long term (current) use of aspirin; Z56.0 Unemployment, unspecified
CPT/HCPCS: 31500; 36415; 36573; 36589; 36600; 71045; 80048; 80053; 80156; 80165; 80184; 80185; 80305; 80320; 81003; 82140; 82375; 82805; 83605; 83880; 84443; 84478; 84484; 85025; 87070; 87426; 92610; 93005; 94002; 94003; 94640; 95816; 99291; A6261; C1725; C9113; C9803; J0456; J0696; J1165; J1650; J1940; J1953; J2250; J2270; J2405; J2704; J2765; J3010; J3480; J7030; J7050; J7060; A4315; G0480

== ENCOUNTER 2022-07-13 21:21 | Inpatient (IN) | payer OTHER ==
[~2022-07-13] VITALS: Ht 160 cm; Wt 80.7 kg
[~2022-07-13 21:21] MED LIST changes: +ASPI-1497 MT; +ATOR20TA PO; +GABA-290 PO; +OMEP20TA15 MT; +SERT100T PO
[2022-07-13 23:35] LABS: HEMATOCRIT. 41.1 % (36.0-48.0); HEMOGLOBIN. 13.5 g/dL (12.0-16.0); MEAN CORPUSCULAR HEMOGLOBIN 31.3 pg (28.0-32.0); MEAN CORPUSCULAR VOLUME 95.1 fL (81.0-99.0); MEAN PLATELET VOLUME 8.6 fl (7.4-10.4); PLATELET 385 x1000/uL (130-400); RED BLOOD CELL COUNT 4.32 mill/uL (4.2-5.4); RED CELL DISTRIBUTION WIDTH 14.6 % (11.6-14.6)
[2022-07-13 23:41] LABS: CHLORIDE 107 mEq/L (98-107)
[2022-07-13 23:49] LABS: ETHANOL BLOOD < 10 mg/dL
[2022-07-14] MEDS ORDERED: LEVETIRACETAM 500MG PREMIX 100 ML IV NR (00:15)
[2022-07-14 00:34] LABS: CLARITY URINE CLEAR (CLEAR); COLOR URINE YELLOW (YELLOW); KETONES URINE NEGATIVE (NEGATIVE); LEUKOCYTE ESTERASE URINE NEGATIVE (NEGATIVE); NITRITE URINE NEGATIVE (NEGATIVE); OCCULT BLOOD URINE 1+ (NEGATIVE); PH URINE 5.5 (4.5-8.0); PROTEIN URINE 2+ (NEGATIVE); SPECIFIC GRAVITY URINE 1.025 (1.005-1.030); UROBILINOGEN URINE 0.2 E.U./dL (0.2-1.0)
[2022-07-14 01:00] LABS: *AMPHETAMINES SCREEN URINE PRESUMTIVE POSITIVE (NEGATIVE); *BARBITURATES SCREEN URINE NEGATIVE (NEGATIVE); *BENZODIAZEPINES SCREEN URINE NEGATIVE (NEGATIVE); *COCAINE SCREEN URINE NEGATIVE (NEGATIVE); CANNABINOID URINE SCREEN NEGATIVE (NEGATIVE); METHADONE URINE SCREEN NEGATIVE (NEGATIVE); OPIATES URINE SCREEN NEGATIVE (NEGATIVE); PHENCYCLIDINE URINE SCREEN NEGATIVE (NEGATIVE)
[2022-07-14] MEDS ORDERED: IOHEXOL-350 100 ML BOTTLE ONE (03:56)
[2022-07-14 04:55] VITALS: BP 151/78
[2022-07-14 08:00] VITALS: BP 138/81
[2022-07-14 09:38] LABS: PLATELET ESTIMATE NORMAL
[2022-07-14] MEDS ORDERED: ONDANSETRON HCL 4MG/2ML INJ IV PRN (10:15)
[2022-07-14] MEDS ORDERED: ACETAMINOPHEN 325MG TABLET PO PRN (10:15)
[2022-07-14 12:00] VITALS: BP 130/70
[2022-07-14] MEDS ORDERED: CEFTRIAXONE 1 G PREMIX 50 ML IV SCH (12:30)
[2022-07-14] MEDS: ENOXAPARIN 40MG/0.4ML SYR SUBCUT SCH (13:02)
[2022-07-14] MEDS: LEVETIRACETAM 500MG TABLET PO SCH ×3 (13:03→21:10)
[2022-07-14] MEDS: ASPIRIN 81MG TABLET PO SCH (13:03)
[2022-07-14] MEDS: CEFTRIAXONE 1,000 MG in DEXTROSE 5% WATER 50 ML IV SCH ×2 (13:30→15:44)
[2022-07-14] MEDS ORDERED: LORAZEPAM 2MG/ML CPJ IV PRN ×2 (15:30→21:30)
[2022-07-14 16:00] VITALS: BP 127/66
[2022-07-14 20:00] VITALS: BP 137/78
[2022-07-14] MEDS: CLOPIDOGREL 75MG TABLET PO SCH ×2 (21:00→21:10)
[2022-07-15] VITALS: BP 147/73
[2022-07-15 04:00] VITALS: BP 134/68
[2022-07-15 08:00] VITALS: BP 106/61
[2022-07-15] MEDS: LEVETIRACETAM 500MG TABLET PO SCH ×2 (10:26→21:00)
[2022-07-15] MEDS: ASPIRIN 81MG TABLET PO SCH (10:26)
[2022-07-15] MEDS: ENOXAPARIN 40MG/0.4ML SYR SUBCUT SCH (10:26)
[2022-07-15] MEDS: CLOPIDOGREL 75MG TABLET PO SCH (10:26)
[2022-07-15 12:00] VITALS: BP 105/58
[2022-07-15] MEDS: CEFTRIAXONE 1,000 MG in DEXTROSE 5% WATER 50 ML IV SCH (14:33)
[2022-07-15 16:00] VITALS: BP 109/70
[2022-07-15 20:00] VITALS: BP 106/72
[2022-07-16] VITALS: BP 124/76
[2022-07-16 01:19] VITALS: BP 109/50
[2022-07-16 04:00] VITALS: BP 103/77
[2022-07-16 08:00] VITALS: BP 103/59
[2022-07-16] MEDS: CLOPIDOGREL 75MG TABLET PO SCH (08:01)
[2022-07-16] MEDS: LEVETIRACETAM 500MG TABLET PO SCH (08:01)
[2022-07-16] MEDS: ASPIRIN 81MG TABLET PO SCH (08:01)
[2022-07-19 04:11] LABS: HIV SCREEN 4G Non Reactive (Non Reactive)
== END 2022-07-16 08:40 | disposition home or self-care (01) | DRG 52 ==
LOC: ER 21:21 → EDBEDREQTM 07-14 02:09 → EDBEDREQ 07-14 02:09 → ENRESERV 07-14 03:46 → 7WST 07-14 04:00
PROVIDERS: ADMIT Internal Medicine; ATTEND Internal Medicine
DX: G92.8 Other toxic encephalopathy (principal); D72.829 Elevated white blood cell count, unspecified; G40.909 Epilepsy, unspecified, not intractable, without status epilepticus; E87.6 Hypokalemia; Z20.822 Contact with and (suspected) exposure to COVID-19; F15.90 Other stimulant use, unspecified, uncomplicated; Z79.899 Other long term (current) drug therapy; Z86.73 Personal history of transient ischemic attack (TIA), and cerebral infarction without residual deficits; T43.655A Adverse effect of methamphetamines, initial encounter
CPT/HCPCS: 36415; 70496; 70498; 70551; 71045; 80053; 80061; 80305; 80307; 80320; 80329; 81003; 82140; 82962; 83036; 83605; 84443; 85025; 87389; 87426; 93005; 93306; 99285; J0696; J1650; J1953; J2060; J7060; Q9967; G0480

== ENCOUNTER 2022-08-05 11:23 | Emergency (ER) | payer OTHER ==
[~2022-08-05] VITALS: Ht 157.5 cm; Wt 77.0 kg
[2022-08-05 11:28] VITALS: BP 119/99
[2022-08-05] MEDS ORDERED: ACETAMINOPHEN WITH CODEINE 300/30MG TABLET PO ONE (12:15)
[2022-08-05] MEDS ORDERED: IBUP-2029 MT (13:57)
== END 2022-08-05 15:54 | disposition home or self-care (01) ==
LOC: ER 11:33
DX: S92.352A Displaced fracture of fifth metatarsal bone, left foot, initial encounter for closed fracture (principal); F15.10 Other stimulant abuse, uncomplicated; E78.00 Pure hypercholesterolemia, unspecified; Z98.890 Other specified postprocedural states; Z86.59 Personal history of other mental and behavioral disorders; W50.2XXA Accidental twist by another person, initial encounter; Y93.89 Activity, other specified; Y92.89 Other specified places as the place of occurrence of the external cause; Y99.8 Other external cause status
CPT/HCPCS: 73610; 73630; 99284

== ENCOUNTER 2024-11-11 08:04 | Emergency (ER) | payer MEDICARE, MEDICAID ==
[~2024-11-11] VITALS: Ht 157.5 cm; Wt 72.0 kg
[~2024-11-11 08:04] MED LIST changes: +BRIV100T PO; +FOLI-43 PO; +IBUP-2029 MT; +PHEN100C4 PO; +PRAZ1CAP5 PO
[2024-11-11 08:06] VITALS: BP 133/80; PULSE 70; RESP 18; TEMP 37.1; O2SAT 98
[2024-11-11] MEDS: DICYCLOMINE HCL 10MG CAPSULE PO ONE (09:00)
[2024-11-11] MEDS ORDERED: DICY20TA2 MT (09:03)
[2024-11-11 09:27] LABS: BASOPHILS % 0.6 % (0.0-2.0); EOSINOPHILS % 3.4 % (0.0-5.0); HEMATOCRIT. 39.5 % (36.0-48.0); HEMOGLOBIN. 13.1 g/dL (12.0-16.0); LYMPHOCYTES % 24.6 % (20.0-50.0); MEAN CORPUSCULAR HEMOGLOBIN 30.6 pg (28.0-32.0); MEAN CORPUSCULAR HGB CONC 33.2 g/dL (31.0-37.0); MEAN CORPUSCULAR VOLUME 92.1 fL (81.0-99.0); MONOCYTES % 6.7 % (2.0-8.0); NEUTROPHILS % 64.7 % (40.0-76.0); PLATELET 288 x1000/uL (130-400); RED BLOOD CELL COUNT 4.29 mill/uL (4.2-5.4); RED CELL DISTRIBUTION WIDTH 13.6 % (11.6-14.6); WHITE BLOOD COUNT 6.2 x1000/uL (4.5-11.0)
[2024-11-11 09:36] LABS: CARBON DIOXIDE 25 mEq/L (21-32); CHLORIDE 102 mEq/L (98-107); INR 1.1; POTASSIUM 3.5 mEq/L (3.5-5.1); PROTHROMBIN TIME 11.3 sec (9.6-11.0); SODIUM 139 mEq/L (136-145)
[2024-11-11 09:37] LABS: CALCIUM 9.3 mg/dL (8.7-10.4)
[2024-11-11 09:41] LABS: CREATININE 0.7 mg/dL (0.6-1.0); GLUCOSE 116 mg/dL (70-105)
[2024-11-11 09:42] LABS: UREA NITROGEN BLOOD 12 mg/dL (9-23)
[2024-11-11] MEDS: LEVETIRACETAM 500MG TABLET PO ONE (10:15)
== END 2024-11-11 10:26 | disposition home or self-care (01) ==
LOC: ER 08:04
DX: R19.7 Diarrhea, unspecified (principal); R10.9 Unspecified abdominal pain; J44.9 Chronic obstructive pulmonary disease, unspecified; F15.90 Other stimulant use, unspecified, uncomplicated; Z79.82 Long term (current) use of aspirin; Z79.899 Other long term (current) drug therapy; Z86.73 Personal history of transient ischemic attack (TIA), and cerebral infarction without residual deficits; Z88.1 Allergy status to other antibiotic agents
CPT/HCPCS: 36415; 80048; 85025; 99283

== ENCOUNTER 2024-11-13 23:26 | Inpatient (IN) | payer MEDICARE, MEDICAID ==
[~2024-11-13] VITALS: Ht 152.4 cm; Wt 59.9 kg
[~2024-11-13 23:26] MED LIST changes: +DICY20TA2 MT
[2024-11-13 23:28] VITALS: O2SAT 92
[2024-11-14 00:22] LABS: BASOPHILS % 0.8 % (0.0-2.0); EOSINOPHILS % 2.9 % (0.0-5.0); HEMOGLOBIN. 12.7 g/dL (12.0-16.0); LYMPHOCYTES % 23.2 % (20.0-50.0); MEAN CORPUSCULAR HEMOGLOBIN 31.6 pg (28.0-32.0); MEAN CORPUSCULAR HGB CONC 33.5 g/dL (31.0-37.0); MEAN CORPUSCULAR VOLUME 94.2 fL (81.0-99.0); MEAN PLATELET VOLUME 8.1 fl (7.4-10.4); MONOCYTES % 5.1 % (2.0-8.0); PLATELET 290 x1000/uL (130-400); RED BLOOD CELL COUNT 4.04 mill/uL (4.2-5.4); RED CELL DISTRIBUTION WIDTH 13.4 % (11.6-14.6); WHITE BLOOD COUNT 5.9 x1000/uL (4.5-11.0)
[2024-11-14 00:36] LABS: AMMONIA < 17 uMol/L (<32)
[2024-11-14 01:39] LABS: CHLORIDE 107 mEq/L (98-107); POTASSIUM 3.8 mEq/L (3.5-5.1); SODIUM 142 mEq/L (136-145)
[2024-11-14 01:40] LABS: CALCIUM 9.4 mg/dL (8.7-10.4); CARBON DIOXIDE 24 mEq/L (21-32)
[2024-11-14 01:45] LABS: CREATININE 0.7 mg/dL (0.6-1.0); GLUCOSE 112 mg/dL (70-105); UREA NITROGEN BLOOD 13 mg/dL (9-23)
[2024-11-14 01:47] LABS: CREATINE KINASE 228 IU/L (34-145)
[2024-11-14 01:50] LABS: ETHANOL BLOOD < 10 mg/dL (<10)
[2024-11-14 01:51] LABS: PHENYTOIN < 2.0 ug/mL (10-20); VALPROIC ACID < 3.0 ug/mL (50-100)
[2024-11-14] MEDS: SODIUM CHLORIDE 0.9% 500 ML IV ONE (02:16)
[2024-11-14] MEDS ORDERED: ONDANSETRON HCL 4MG/2ML INJ IV PRN (03:45)
[2024-11-14] MEDS: SODIUM CHLORIDE 0.9% 1,000 ML IV SCH (03:45)
[2024-11-14] MEDS ORDERED: LORAZEPAM 2MG/ML INJ IV PRN ×2 (03:45→09:45)
[2024-11-14] MEDS ORDERED: ACETAMINOPHEN 325MG TABLET PO PRN ×2 (03:45)
[2024-11-14] MEDS ORDERED: IPRATROPIUM/ALBUTEROL 0.5-3(2.5)MG/3ML NEB HHN PRN (03:45)
[2024-11-14] MEDS ORDERED: DOCUSATE SODIUM 100MG CAPSULE PO PRN (03:45)
[2024-11-14] MEDS ORDERED: GUAIFENESIN 200MG/10ML SUGAR FREE UDC PO PRN (03:45)
[2024-11-14] MEDS ORDERED: HYDRALAZINE 20MG/ML VIAL IV PRN (04:00)
[2024-11-14 04:01] VITALS: BP 157/71; PULSE 74; RESP 17; TEMP 36.3
[2024-11-14] MEDS: AMLODIPINE 5MG TABLET PO SCH ×2 (04:15→21:00)
[2024-11-14 08:00] VITALS: BP 122/64; PULSE 60; RESP 20; TEMP 36.6; O2SAT 94
[2024-11-14] MEDS: LEVETIRACETAM 500MG PREMIX 100 ML IV SCH (08:32)
[2024-11-14 09:48] LABS: CLARITY URINE CLOUDY (CLEAR); COLOR URINE YELLOW (YELLOW); GLUCOSE URINE NEGATIVE (NEGATIVE); KETONES URINE NEGATIVE (NEGATIVE); LEUKOCYTE ESTERASE URINE 3+ (NEGATIVE); NITRITE URINE NEGATIVE (NEGATIVE); OCCULT BLOOD URINE 1+ (NEGATIVE); PH URINE 6.5 (4.5-8.0); PROTEIN URINE NEGATIVE (NEGATIVE); SPECIFIC GRAVITY URINE 1.013 (1.005-1.030); UROBILINOGEN URINE 0.2 E.U./dL (0.2-1.0)
[2024-11-14 10:17] LABS: SQUAMOUS EPITHELIAL CELL URINE 1+ /lpf (RARE/1+)
[2024-11-14] MEDS: KETOROLAC 15MG/ML VIAL IV PRN (10:17)
[2024-11-14 10:19] LABS: BACTERIA URINE 4+; WBC URINE 50-100 /hpf (0-2)
[2024-11-14 10:55] LABS: *AMPHETAMINES SCREEN URINE NEGATIVE (NEGATIVE)
[2024-11-14 10:56] LABS: *BARBITURATES SCREEN URINE NEGATIVE (NEGATIVE); *BENZODIAZEPINES SCREEN URINE NEGATIVE (NEGATIVE); *COCAINE SCREEN URINE NEGATIVE (NEGATIVE); METHADONE URINE SCREEN NEGATIVE (NEGATIVE); OPIATES URINE SCREEN NEGATIVE (NEGATIVE); PHENCYCLIDINE URINE SCREEN NEGATIVE (NEGATIVE)
[2024-11-14 10:57] LABS: CANNABINOID URINE SCREEN NEGATIVE (NEGATIVE); ECSTASY MDMA SCREEN URINE NEGATIVE (NEGATIVE)
[2024-11-14] MEDS ORDERED: BRIV100T MT (11:39)
[2024-11-14] MEDS ORDERED: LIP40 MT (11:39)
[2024-11-14] MEDS ORDERED: LEVE750T66 MT (11:39)
[2024-11-14] MEDS ORDERED: T3 PO (11:39)
[2024-11-14] MEDS ORDERED: PREG50CA MT (11:39)
[2024-11-14] MEDS ORDERED: SERT100T MT (11:39)
[2024-11-14] MEDS ORDERED: PRAZ1CAP5 MT (11:39)
[2024-11-14] MEDS: CEFTRIAXONE 1GM/50ML 50 ML IV SCH (12:48)
[2024-11-14] MEDS: BRIVIACT 100MG TABLET PO SCH (13:08)
[2024-11-14] MEDS ORDERED: CLONIDINE 0.1MG TABLET PO PRN (13:45)
[2024-11-14 19:01] LABS: AMMONIA < 17 uMol/L (<32)
[2024-11-14 20:00] VITALS: BP 119/66; PULSE 61; RESP 16; TEMP 36.6; O2SAT 96
[2024-11-14] MEDS: PHENYTOIN SODIUM EXTENDED 100MG CAPSULE PO SCH (21:00)
[2024-11-14] MEDS ORDERED: BRIVARACETAM 100 MG PO SCH (21:00)
[2024-11-15 18:07] LABS: BASOPHILS % 0.8 % (0.0-2.0); EOSINOPHILS % 4.3 % (0.0-5.0); HEMATOCRIT. 40.4 % (36.0-48.0); HEMOGLOBIN. 13.6 g/dL (12.0-16.0); LYMPHOCYTES % 18.3 % (20.0-50.0); MEAN CORPUSCULAR HEMOGLOBIN 31.6 pg (28.0-32.0); MEAN CORPUSCULAR HGB CONC 33.7 g/dL (31.0-37.0); MEAN CORPUSCULAR VOLUME 93.7 fL (81.0-99.0); MEAN PLATELET VOLUME 8.3 fl (7.4-10.4); MONOCYTES % 6.6 % (2.0-8.0); PLATELET 316 x1000/uL (130-400); RED BLOOD CELL COUNT 4.31 mill/uL (4.2-5.4); RED CELL DISTRIBUTION WIDTH 13.7 % (11.6-14.6); WHITE BLOOD COUNT 8.3 x1000/uL (4.5-11.0)
[2024-11-15 18:30] LABS: CARBON DIOXIDE 26 mEq/L (21-32); CHLORIDE 107 mEq/L (98-107); POTASSIUM 3.5 mEq/L (3.5-5.1); SODIUM 142 mEq/L (136-145)
[2024-11-15 18:31] LABS: CALCIUM 9.7 mg/dL (8.7-10.4)
[2024-11-15 18:35] LABS: CREATININE 0.7 mg/dL (0.6-1.0); GLUCOSE 99 mg/dL (70-105); THYROID STIMULATING HORMONE 0.75 uIU/mL (0.55-4.78)
[2024-11-15 18:36] LABS: LDL CHOLESTEROL 111 mg/dL (5-100); TRIGLYCERIDE 183 mg/dL (0-150); UREA NITROGEN BLOOD 13 mg/dL (9-23)
[2024-11-15 18:37] LABS: ALANINE AMINOTRANSFERASE 14 IU/L (10-49); ALBUMIN 4.2 g/dL (3.2-4.8); ASPARTATE AMINOTRANSFERASE 18 IU/L (<34); CHOLESTEROL 187 mg/dL (<200)
[2024-11-15 18:38] LABS: BILIRUBIN TOTAL 0.3 mg/dL (0.1-1.0); HDL CHOLESTEROL 49 mg/dL (>65); PROTEIN TOTAL 7.6 g/dL (6.0-8.3)
[2024-11-15 18:40] LABS: BILIRUBIN DIRECT < 0.1 mg/dL (<=3.0)
[2024-11-15 20:00] VITALS: BP 174/101; PULSE 87; RESP 18; TEMP 36.9; O2SAT 95
[2024-11-16] VITALS: BP 122/74; PULSE 63; RESP 18; TEMP 37.3; O2SAT 96
[2024-11-16 08:00] VITALS: BP 140/77; PULSE 68; RESP 18; TEMP 36.9; O2SAT 92
[2024-11-16] MEDS ORDERED: HALOPERIDOL LACTATE 5MG/ML VIAL IM PRN (08:00)
[2024-11-16] MEDS ORDERED: SULF1TAB48 MT (10:07)
[2024-11-16 12:00] VITALS: BP 128/94; PULSE 70; RESP 18; TEMP 36.3; O2SAT 96
== END 2024-11-16 12:12 | disposition left against medical advice (07) | DRG 101 ==
LOC: ER 23:26 → 5WST 11-14 01:49
PROVIDERS: ADMIT Internal Medicine; ATTEND Internal Medicine
DX: G40.909 Epilepsy, unspecified, not intractable, without status epilepticus (principal); N39.0 Urinary tract infection, site not specified; I10 Essential (primary) hypertension; E78.5 Hyperlipidemia, unspecified; J44.9 Chronic obstructive pulmonary disease, unspecified; Z53.29 Procedure and treatment not carried out because of patient's decision for other reasons; B96.89 Other specified bacterial agents as the cause of diseases classified elsewhere; G93.89 Other specified disorders of brain; Z86.73 Personal history of transient ischemic attack (TIA), and cerebral infarction without residual deficits; Z88.1 Allergy status to other antibiotic agents; Z91.148 Patient's other noncompliance with medication regimen for other reason; Z91.199 Patient's noncompliance with other medical treatment and regimen due to unspecified reason; Z88.8 Allergy status to other drugs, medicaments and biological substances
CPT/HCPCS: 36415; 71045; 80048; 80061; 80076; 80165; 80185; 80305; 80320; 81003; 82140; 82550; 82962; 83605; 84145; 84443; 85025; 87077; 87186; 93005; 97161; 99285; J0696; J1885; J1953; J7030; G0480

== ENCOUNTER 2025-05-08 09:55 | Inpatient (IN) | payer MEDICARE, MEDICAID ==
[~2025-05-08] VITALS: Ht 160 cm; Wt 84.4 kg
[~2025-05-08 09:55] MED LIST changes: -ATOR20TA PO; -BRIV100T PO; -DICY20TA2 MT; +DOXY100C5 PO; -FOLI-43 PO; -GABA-290 PO; -IBUP-2029 MT; -KEPP500 MT; +LEVE750T10 MT; +LIP40 MT; -PHEN100C4 PO; +SERT100T MT; -SERT100T PO
[2025-05-08 10:00] VITALS: O2SAT 99
[2025-05-08 10:19] LABS: BASOPHILS % 1.1 % (0.0-2.0); EOSINOPHILS % 6.4 % (0.0-5.0); HEMATOCRIT. 37.5 % (36.0-48.0); HEMOGLOBIN. 12.5 g/dL (12.0-16.0); LYMPHOCYTES % 28.4 % (20.0-50.0); MEAN PLATELET VOLUME 8.2 fl (7.4-10.4); MONOCYTES % 6.0 % (2.0-8.0); NEUTROPHILS % 58.1 % (40.0-76.0); PLATELET 366 x1000/uL (130-400); RED BLOOD CELL COUNT 4.12 mill/uL (4.2-5.4); RED CELL DISTRIBUTION WIDTH 13.7 % (11.6-14.6)
[2025-05-08 10:36] LABS: CREATININE 0.7 mg/dL (0.6-1.0); UREA NITROGEN BLOOD 14 mg/dL (9-23)
[2025-05-08 10:37] LABS: TROPONIN I HIGH SENSITIVITY < 4 ng/L (3.0-34)
[2025-05-08] MEDS ORDERED: ONDANSETRON HCL 4MG/2ML INJ IV PRN (11:45)
[2025-05-08] MEDS ORDERED: CLONIDINE 0.1MG TABLET PO PRN (11:45)
[2025-05-08] MEDS ORDERED: GUAIFENESIN 200MG/10ML SUGAR FREE UDC PO PRN (11:45)
[2025-05-08] MEDS ORDERED: IPRATROPIUM/ALBUTEROL 0.5-3(2.5)MG/3ML NEB HHN PRN (11:45)
[2025-05-08] MEDS ORDERED: DOCUSATE SODIUM 100MG CAPSULE PO PRN (11:45)
[2025-05-08] MEDS ORDERED: ACETAMINOPHEN 325MG TABLET PO PRN (11:45)
[2025-05-08] MEDS: MORPHINE SULFATE 4 MG/ML INJ (FOR IV/IM USE) IV ONE (12:02)
[2025-05-08 13:45] VITALS: BP 151/85; PULSE 60; RESP 18; TEMP 37; O2SAT 96
[2025-05-08] MEDS ORDERED: LACO50TA2 PO (15:11)
[2025-05-08] MEDS ORDERED: BRIV50TA MT (15:11)
[2025-05-08 16:00] VITALS: BP 133/77; PULSE 68; RESP 18; TEMP 36.7; O2SAT 97
[2025-05-08] MEDS ORDERED: PREG50CA PO (17:43)
[2025-05-08 18:31] VITALS: BP 151/85; PULSE 60; RESP 18; TEMP 37.0296
[2025-05-08 20:00] VITALS: BP 117/54; PULSE 55; RESP 18; TEMP 36.4; O2SAT 100
[2025-05-08] MEDS: NITROGLYCERIN 0.4MG TABLET SL SL PRN (21:18)
[2025-05-08] MEDS: LEVETIRACETAM 500MG/5ML CUP PO SCH (21:19)
[2025-05-08] MEDS: ACETAMINOPHEN 325MG TABLET PO PRN (21:19)
[2025-05-08] MEDS: ATORVASTATIN CALCIUM 40MG TABLET PO SCH (21:20)
[2025-05-08] MEDS: PREGABALIN 50 MG CAPSULE PO SCH (21:20)
[2025-05-08] MEDS: SERTRALINE HCL 100MG TABLET PO SCH (21:20)
[2025-05-08] MEDS: ENOXAPARIN 40MG/0.4ML SYR SUBCUT SCH (21:21)
[2025-05-08 22:33] LABS: INR 1.0
[2025-05-08 22:40] LABS: ETHANOL BLOOD < 10 mg/dL (<10)
[2025-05-08 22:41] LABS: ASPARTATE AMINOTRANSFERASE 17 IU/L (<34); BILIRUBIN DIRECT < 0.1 mg/dL (<=3.0); CREATINE KINASE MB FRACTION 1.1 ng/mL (0.5-3.6); PHOSPHORUS 3.2 mg/dL (2.5-4.9); TROPONIN I HIGH SENSITIVITY < 4 ng/L (3.0-34)
[2025-05-08 22:42] LABS: BILIRUBIN TOTAL 0.3 mg/dL (0.1-1.0); PROTEIN TOTAL 7.0 g/dL (6.0-8.3)
[2025-05-09 04:00] VITALS: BP 131/68; PULSE 60; RESP 17; TEMP 36.2; O2SAT 95
[2025-05-09 06:29] LABS: CLARITY URINE CLEAR (CLEAR); COLOR URINE YELLOW (YELLOW); GLUCOSE URINE NEGATIVE (NEGATIVE); KETONES URINE NEGATIVE (NEGATIVE); LEUKOCYTE ESTERASE URINE NEGATIVE (NEGATIVE); NITRITE URINE NEGATIVE (NEGATIVE); OCCULT BLOOD URINE TRACE (NEGATIVE); PH URINE 6.0 (4.5-8.0); PROTEIN URINE NEGATIVE (NEGATIVE); SPECIFIC GRAVITY URINE 1.007 (1.005-1.030); UROBILINOGEN URINE 0.2 E.U./dL (0.2-1.0)
[2025-05-09 06:54] LABS: BACTERIA URINE TRACE; RBC URINE NONE SEEN /hpf (0-2); SQUAMOUS EPITHELIAL CELL URINE NONE SEEN /lpf (RARE/1+); WBC URINE 0-2 /hpf (0-2)
[2025-05-09 07:05] LABS: *AMPHETAMINES SCREEN URINE NEGATIVE (NEGATIVE); *BENZODIAZEPINES SCREEN URINE NEGATIVE (NEGATIVE)
[2025-05-09 07:06] LABS: *BARBITURATES SCREEN URINE NEGATIVE (NEGATIVE); *COCAINE SCREEN URINE NEGATIVE (NEGATIVE); CANNABINOID URINE SCREEN NEGATIVE (NEGATIVE); ECSTASY MDMA SCREEN URINE NEGATIVE (NEGATIVE); METHADONE URINE SCREEN NEGATIVE (NEGATIVE); OPIATES URINE SCREEN PRESUMPTIVE POSITIVE (NEGATIVE); PHENCYCLIDINE URINE SCREEN NEGATIVE (NEGATIVE)
[2025-05-09 08:00] VITALS: BP 114/73; PULSE 65; RESP 15; TEMP 37.1; O2SAT 92
[2025-05-09] MEDS: PANTOPRAZOLE 40MG DR TABLET PO SCH (09:36)
[2025-05-09] MEDS: ASPIRIN 81MG EC TABLET PO SCH (09:36)
[2025-05-09 10:31] LABS: PLATELET 394 x1000/uL (130-400); RED BLOOD CELL COUNT 4.39 mill/uL (4.2-5.4); RED CELL DISTRIBUTION WIDTH 13.8 % (11.6-14.6)
[2025-05-09 10:47] LABS: T4 FREE 0.98 ng/dL (0.89-1.76)
[2025-05-09 10:51] LABS: CREATININE 0.7 mg/dL (0.6-1.0); TRIGLYCERIDE 263 mg/dL (0-150); UREA NITROGEN BLOOD 14 mg/dL (9-23)
[2025-05-09 10:52] LABS: LDL CHOLESTEROL 119 mg/dL (5-100)
[2025-05-09 10:53] LABS: PHOSPHORUS 2.9 mg/dL (2.5-4.9)
[2025-05-09 12:00] VITALS: BP 129/64; PULSE 62; RESP 18; TEMP 36.9; O2SAT 94
[2025-05-09] MEDS: BRIVIACT 100 MG PO SCH (15:22)
[2025-05-09 16:00] VITALS: BP 149/73; PULSE 64; RESP 18; TEMP 36.8; O2SAT 96
[2025-05-09 20:00] VITALS: BP 122/59; PULSE 70; RESP 17; TEMP 36; O2SAT 97
[2025-05-10] VITALS: BP 121/61; PULSE 62; RESP 17; TEMP 34.8; O2SAT 96
[2025-05-10 04:00] VITALS: BP 131/74; PULSE 59; RESP 59; TEMP 36.6; O2SAT 96
[2025-05-10 08:00] VITALS: BP 112/76; PULSE 58; RESP 18; TEMP 36.7; O2SAT 97
[2025-05-10 12:00] VITALS: BP 126/71; PULSE 74; RESP 18; TEMP 36.7; O2SAT 95
[2025-05-10 14:08] VITALS: BP 126/71; PULSE 74; RESP 18; TEMP 98
== END 2025-05-10 14:35 | disposition home health service (06) | DRG 311 ==
LOC: ER 09:55 → EDBEDREQ 10:46 → 5WST 11:15 → EDBEDREQ 11:18 → EDBEDREQTM 11:18 → ENRESERV 12:13 → 6EST 05-10 05:55
PROVIDERS: ADMIT Hospitalist; ATTEND Hospitalist
DX: I20.0 Unstable angina (principal); I10 Essential (primary) hypertension; G40.909 Epilepsy, unspecified, not intractable, without status epilepticus; F32.9 Major depressive disorder, single episode, unspecified; F17.200 Nicotine dependence, unspecified, uncomplicated; E78.5 Hyperlipidemia, unspecified; Z20.822 Contact with and (suspected) exposure to COVID-19; J44.9 Chronic obstructive pulmonary disease, unspecified; Z79.899 Other long term (current) drug therapy; Z88.1 Allergy status to other antibiotic agents; Z86.73 Personal history of transient ischemic attack (TIA), and cerebral infarction without residual deficits
CPT/HCPCS: 36415; 71045; 80048; 80061; 80076; 80305; 80320; 80339; 81003; 82550; 82553; 83605; 83735; 83880; 84100; 84145; 84439; 84443; 84484; 85025; 85027; 85379; 87426; 93005; 93970; 99285; J1650; J2270; G0480